=== PATIENT | female | born 1985 | race Caucasian/White ===

== ENCOUNTER 2019-08-27 12:13 | Emergency (ER) | payer OTHER ==
--- NOTE | 2019-08-27 13:13 | EDM.PDOC ---
ED HPI GENERAL MEDICAL PROBLEM - General Chief Complaint: Gastrointestinal Problem Stated Complaint: ABDOMINAL PAIN Time Seen by Provider: 08/27/19 13:13 Source of Information: Reports: Patient History Limitations: Reports: No Limitations - History of Present Illness INITIAL COMMENTS - FREE TEXT/NARRATIVE: HISTORY AND PHYSICAL: History of present illness: Patient is a 34-year-old female presents to the ED with complaint of blood in her stool. Patient states that she started having crampy lower abdominal pain and diarrhea this morning. She states she had multiple episodes of nonbloody diarrhea into the last 2 episodes she was having just blood in her stools. She denies any fevers, chills, nausea, vomiting rectal pain or itching, chest pain, shortness of breath, dizziness, syncope or pre-syncope. She reports surgical history of ovarian cyst removal 5 years ago. He is on Adderall for ADHD otherwise denies significant past medical history. Denies alcohol, tobacco, or illicit drug use. Review of systems: As per history of present illness and below otherwise all systems reviewed and negative. Past medical history: As per history of present illness and as reviewed below otherwise noncontributory. Surgical history: As per history of present illness and as reviewed below otherwise noncontributory. Social history: No reported history of drug or alcohol abuse. Family history: As per history of present illness and as reviewed below otherwise noncontributory. Physical exam: General: Patient sitting comfortably in no acute distress and nontoxic appearing HEENT: Atraumatic, normocephalic, pupils reactive, negative for conjunctival pallor or scleral icterus, mucous membranes moist, throat clear, neck supple, nontender, trachea midline. No meningeal signs. Lungs: Clear to auscultation, breath sounds equal bilaterally, chest nontender. Heart: S1S2, regular, negative for clicks, rubs, or overt murmur. Abdomen: No point tenderness on examination. Soft, nondistended. Negative for masses or hepatosplenomegaly. Negative for costovertebral tenderness. No rigidity, rebound, guarding. Pelvis: Stable nontender. Genitourinary: Deferred. Rectal: small external hemorrhoid noted. No stool in rectal vault and unable to perform stool guaiac. Extremities: Atraumatic, negative for cords or calf pain. Neurovascular unremarkable. Neuro: Awake, alert, oriented. Cranial nerves II through XII unremarkable. Cerebellum unremarkable. Motor and sensory unremarkable throughout. Exam nonfocal. Notes: Patient unable to give stool sample in ED. Patient did have a couple of drops of blood from her rectum while urinating with some mucous mixed in per nursing staff. Will treat for infectious colitis with cipro and advised follow up with general surgery for colonoscopy as well as PCP follow up. Patient advised to return to ED if new or worsening symptoms Diagnostics: CBC, CMP, PT/INR, stool culture, stool WBC, UA Therapeutics: [] Prescriptions: Cipro , Dike Impression: Blood per rectum, diarrhea, abdominal pain Plan: Take antibiotic as instructed You may take norco as needed for abdominal pain, do not take while driving as it may make you drowsy Follow up with primary care provider and general surgery, please call the number provided to schedule an appointment Return to ED as needed as discussed Definitive disposition and diagnosis as appropriate pending reevaluation and review of above. lower abdomen Pain Score (Numeric/FACES): 3 - Related Data Allergies Allergy/AdvReac Type Severity Reaction Status Date / Time No Known Allergies Allergy Verified 08/27/19 12:29 Home Meds: Home Meds Dextroamphetamine/Amphetamine [Adderall 20 mg Tablet] 20 mg PO DAILY 04/15/14 [ History] Ciprofloxacin HCl [Cipro] 500 mg PO BID 7 Days #14 tablet 08/27/19 [Rx] Hydrocodone/Acetaminophen [Dike 5-325 Tablet] 1 each PO Q6H PRN #12 tablet 06/05 [Rx] Past Medical History HEENT History: Reports: Sinusitis Cardiovascular History: Reports: None Respiratory History: Reports: Bronchitis, Recurrent Gastrointestinal History: Reports: Cholelithiasis Genitourinary History: Reports: None CARDIOPULMONARY TECHNICIAN History: Reports: None Musculoskeletal History: Reports: None Neurological History: Reports: None Psychiatric History: Reports: ADD, Depression Endocrine/Metabolic History: Reports: None Hematologic History: Reports: None Immunologic History: Reports: None Oncologic (Cancer) History: Reports: None Dermatologic History: Reports: None - Infectious Disease History Infectious Disease History: Reports: None - Past Surgical History Head Surgeries/Procedures: Reports: None HEENT Surgical History: Reports: None Cardiovascular Surgical History: Reports: None Respiratory Surgical History: Reports: None GI Surgical History: Reports: None Female Surgical History: Reports: None Endocrine Surgical History: Reports: None Neurological Surgical History: Reports: None Musculoskeletal Surgical History: Reports: None Oncologic Surgical History: Reports: None Dermatological Surgical History: Reports: None Social & Family History - Family History Family Medical History: Noncontributory - Tobacco Use Smoking Status *Q: Current Every Day Smoker Years of Tobacco use: 14 Packs/Tins Daily: 0.5 - Caffeine Use Caffeine Use: Reports: Coffee, Energy Drinks, Soda, Tea - Recreational Drug Use Recreational Drug Use: No ED ROS GENERAL - Review of Systems Review Of Systems: Comprehensive ROS is negative, except as noted in HPI. ED EXAM, GI/ABD - Physical Exam Exam: See Below (see dictation) Course - Vital Signs Last Recorded V/S: Last Vital Signs Temp 98.5 F 08/27/19 12:30 Pulse 125 H 08/27/19 12:30 Resp 18 08/27/19 12:30 BP 155/92 H 08/27/19 12:30 Pulse Ox 100 08/27/19 12:30 - Orders/Labs/Meds Orders: Active Orders 24 hr Category Date Time Status FECAL LACTOFERRIN [MREF] Stat Lab 08/27/19 13:05 Ordered OVA & PARASITES BY IMMUNOASSAY [MREF] Stat Lab 08/27/19 12:59 Ordered STOOL CULTURE/SHIGA TOXIN [MREF] Stat Lab 08/27/19 12:59 Ordered Labs: Laboratory Tests 08/27/19 08/27/19 08/27/19 Range/Units 12:59 13:20 13:20 WBC 11.27 H (4.0-11.0) K/uL RBC 4.14 L (4.30-5.90) M/uL Hgb 14.0 (12.0-16.0) g/dL Hct 39.8 (36.0-46.0) % MCV 96.1 (80.0-98.0) fL MCH 33.8 H (27.0-32.0) pg MCHC 35.2 (31.0-37.0) g/dL RDW Std Deviation 43.0 (28.0-62.0) fl RDW Coeff of Dany 12 (11.0-15.0) % Plt Count 335 (150-400) K/uL MPV 10.30 (7.40-12.00) fL Neut % (Auto) 77.8 (48.0-80.0) % Lymph % (Auto) 14.6 L (16.0-40.0) % Humphreys % (Auto) 7.0 (0.0-15.0) % Eos % (Auto) 0.2 (0.0-7.0) % Baso % (Auto) 0.4 (0.0-1.5) % Neut # (Auto) 8.8 H (1.4-5.7) K/uL Lymph # (Auto) 1.6 (0.6-2.4) K/uL Humphreys # (Auto) 0.8 (0.0-0.8) K/uL Eos # (Auto) 0.0 (0.0-0.7) K/uL Baso # (Auto) 0.0 (0.0-0.1) K/uL Nucleated RBC % 0.0 /100WBC Nucleated RBCs # 0 K/uL INR 0.92 Sodium (136-145) mmol/L Potassium (3.5-5.1) mmol/L Chloride (98-107) mmol/L Carbon Dioxide (21.0-32.0) mmol/L BUN (7.0-18.0) mg/dL Creatinine (0.6-1.0) mg/dL Est Cr Clr Drug Dosing mL/min Estimated GFR (MDRD) ml/min Glucose (74-106) mg/dL Calcium (8.5-10.1) mg/dL Total Bilirubin (0.2-1.0) mg/dL AST (15-37) IU/L ALT (14-63) IU/L Alkaline Phosphatase (46-116) U/L Total Protein (6.4-8.2) g/dL Albumin (3.4-5.0) g/dL Globulin (2.6-4.0) g/dL Albumin/Globulin Ratio (0.9-1.6) Urine Color YELLOW Urine Appearance CLEAR Urine pH 6.0 (5.0-8.0) Ur Specific [place] 1.025 (1.001-1.035) Urine Protein NEGATIVE (NEGATIVE) mg/dL Urine Glucose (UA) NEGATIVE (NEGATIVE) mg/dL Urine Ketones 40 H (NEGATIVE) mg/dL Urine Occult Blood NEGATIVE (NEGATIVE) Urine Nitrite NEGATIVE (NEGATIVE) Urine Bilirubin NEGATIVE (NEGATIVE) Urine Urobilinogen 0.2 (<2.0) EU/dL Ur Leukocyte Esterase NEGATIVE (NEGATIVE) 08/27/19 Range/Units 13:20 WBC (4.0-11.0) K/uL RBC (4.30-5.90) M/uL Hgb (12.0-16.0) g/dL Hct (36.0-46.0) % MCV (80.0-98.0) fL MCH (27.0-32.0) pg MCHC (31.0-37.0) g/dL RDW Std Deviation (28.0-62.0) fl RDW Coeff of Dany (11.0-15.0) % Plt Count (150-400) K/uL MPV (7.40-12.00) fL Neut % (Auto) (48.0-80.0) % Lymph % (Auto) (16.0-40.0) % Humphreys % (Auto) (0.0-15.0) % Eos % (Auto) (0.0-7.0) % Baso % (Auto) (0.0-1.5) % Neut # (Auto) (1.4-5.7) K/uL Lymph # (Auto) (0.6-2.4) K/uL Humphreys # (Auto) (0.0-0.8) K/uL Eos # (Auto) (0.0-0.7) K/uL Baso # (Auto) (0.0-0.1) K/uL Nucleated RBC % /100WBC Nucleated RBCs # K/uL INR Sodium 136 (136-145) mmol/L Potassium 3.7 (3.5-5.1) mmol/L Chloride 99 (98-107) mmol/L Carbon Dioxide 24.7 (21.0-32.0) mmol/L BUN 13 (7.0-18.0) mg/dL Creatinine 0.6 (0.6-1.0) mg/dL Est Cr Clr Drug Dosing 115.16 mL/min Estimated GFR (MDRD) > 60.0 ml/min Glucose 100 (74-106) mg/dL Calcium 8.6 (8.5-10.1) mg/dL Total Bilirubin 0.5 (0.2-1.0) mg/dL AST 59 H (15-37) IU/L ALT 81 H (14-63) IU/L Alkaline Phosphatase 52 (46-116) U/L Total Protein 8.1 (6.4-8.2) g/dL Albumin 4.3 (3.4-5.0) g/dL Globulin 3.8 (2.6-4.0) g/dL Albumin/Globulin Ratio 1.1 (0.9-1.6) Urine Color Urine Appearance Urine pH (5.0-8.0) Ur Specific [place] (1.001-1.035) Urine Protein (NEGATIVE) mg/dL Urine Glucose (UA) (NEGATIVE) mg/dL Urine Ketones (NEGATIVE) mg/dL Urine Occult Blood (NEGATIVE) Urine Nitrite (NEGATIVE) Urine Bilirubin (NEGATIVE) Urine Urobilinogen (<2.0) EU/dL Ur Leukocyte Esterase (NEGATIVE) Departure - Departure Time of Disposition: 15:05 Disposition: Home, Self-Care 01 Condition: Good Clinical Impression: Blood per rectum, Diarrhea, Abdominal pain - Discharge Information Referrals: Tracey Bond DO [Primary Care Provider] - Forms: ED Department Discharge Additional Instructions: The following information is given to patients seen in the emergency department who are being discharged to home. This information is to outline your options for follow-up care. We provide all patients seen in our emergency department with a follow-up referral. The need for follow-up, as well as the timing and circumstances, are variable depending upon the specifics of your emergency department visit. If you don't have a primary care physician on staff, we will provide you with a referral. We always advise you to contact your personal physician following an emergency department visit to inform them of the circumstance of the visit and for follow-up with them and/or the need for any referrals to a consulting specialist. The emergency department will also refer you to a specialist when appropriate. This referral assures that you have the opportunity for follow-up care with a specialist. All of these measure are taken in an effort to provide you with optimal care, which includes your follow-up. Under all circumstances we always encourage you to contact your private physician who remains a resource for coordinating your care. When calling for follow-up care, please make the office aware that this follow-up is from your recent emergency room visit. If for any reason you are refused follow-up, please contact the [facility] Emergency Department at and asked to speak to the emergency department charge nurse. [facility] [address] [place] [address] [facility] [address] [place] [id number] [facility] Specialty Care - General Surgery Professional Building [address] [facility], [address] [place] [address] Take antibiotic as instructed You may take norco as needed for abdominal pain, do not take while driving as it may make you drowsy Follow up with primary care provider and general surgery, please call the number provided to schedule an appointment Return to ED as needed as discussed Sepsis Event Note - Evaluation Sepsis Screening Result: No Definite Risk - Focused Exam Vital Signs: Vital Signs Temp Pulse Resp BP Pulse Ox 08/27/19 12:30 98.5 F 125 H 18 155/92 H 100 Date Exam was Performed: 08/27/19 Time Exam was Performed: 15:05 - My Orders Last 24 Hours: My Active Orders 08/27/19 12:59 OVA & PARASITES BY IMMUNOASSAY [MREF] Stat STOOL CULTURE/SHIGA TOXIN [MREF] Stat 08/27/19 13:05 FECAL LACTOFERRIN [MREF] Stat - Assessment/Plan Last 24 Hours: My Active Orders 08/27/19 12:59 OVA & PARASITES BY IMMUNOASSAY [MREF] Stat STOOL CULTURE/SHIGA TOXIN [MREF] Stat 08/27/19 13:05 FECAL LACTOFERRIN [MREF] Stat
[2019-08-27 14:00] LABS: BLOOD UREA NITROGEN,BUN 13 mg/dL (7.0-18.0); CARBON DIOXIDE,CO2 24.7 mmol/L (21.0-32.0); CHLORIDE,CL 99 mmol/L (98-107); GLUCOSE RANDOM 100 mg/dL (74-106); POTASSIUM,K 3.7 mmol/L (3.5-5.1); SODIUM,NA 136 mmol/L (136-145)
[2019-08-27] MEDS ORDERED: Acetaminophen/HYDROcodone 325-5 MG Tab PO ONE (15:23)
[2019-08-27 15:37] VITALS: BP 157/92; PULSE 91
== END 2019-08-27 15:40 | disposition home or self-care (01) ==
LOC: MW.ED 12:13
DX: K62.9 Disease of anus and rectum, unspecified (principal); R19.7 Diarrhea, unspecified; R10.9 Unspecified abdominal pain; F17.210 Nicotine dependence, cigarettes, uncomplicated
CPT/HCPCS: 36415; 80053; 81003; 85025; 85610; 99284; A9270

== ENCOUNTER 2020-04-14 09:23 | Day surgery (SDC) | payer OTHER ==
[~2020-04-14 09:23] MED LIST: Glycopyrrolate 0.2 MG/ML SDV ONE; Lactated Ringers 1,000 ML IV SCH; Lidocaine 2% 5 ML SDV ONE; Midazolam 1 MG/ML 2 ML SDV ONE; Propofol 200 MG/20 ML SDV ONE; Sodium Chloride 0.9% 10 ML SDV IV PRN; Sodium Chloride 0.9% 10 ML Syringe FLUSH PRN; Sodium Chloride 0.9% 2.5 ML Syringe FLUSH PRN
--- NOTE | 2020-04-14 10:03 | PCM.PREANE ---
Preanesthetic Assessment - Anesthesia/Transfusion/Family Hx Anesthesia History: Prior Anesthesia Without Reaction Other Type of Anesthesia Reaction Comment: DENIES ANY PROBLEMS WITH ANESTHESIA - never had a general anesthetic Family History of Anesthesia Reaction: No Transfusion History: No Prior Transfusion(s) - Review of Systems General: No Symptoms Pulmonary: No Symptoms Cardiovascular: No Symptoms Neurological: No Symptoms Other: Reports: None - Physical Assessment NPO Status Date: 04/13/20 Height: 5 ft 4 in Weight: 94.347 kg ASA Class: 2 Mental Status: Alert & Oriented x3 Airway Class: Mallampati = 3 ROM/Head Extension: Full Lungs: Clear to Auscultation, Normal Respiratory Effort Cardiovascular: Regular Rate, Regular Rhythm - Lab Values: Laboratory Last Values Urine HCG, Qual NEGATIVE (NEGATIVE) 04/14/20 09:36 - Allergies Allergies/Adverse Reactions: Allergies Allergy/AdvReac Type Severity Reaction Status Date / Time No Known Allergies Allergy Verified 04/08/20 08:12 - Blood Blood Available: Yes - Acknowledgements Anesthesia Type Planned: General Anesthesia (tiva) Pt an Appropriate Candidate for the Planned Anesthesia: Yes Alternatives and Risks of Anesthesia Discussed w Pt/Guardian: Yes Pt/Guardian Understands and Agrees with Anesthesia Plan: Yes Additional Comments: apl: htn, adhd, gerd PLAN: tiva PreAnesthesia Questionnaire HEENT History: Reports: Sinusitis Other HEENT History: wears contacts Cardiovascular History: Reports: None Respiratory History: Reports: Bronchitis, Recurrent Gastrointestinal History: Reports: Cholelithiasis Genitourinary History: Reports: None JEWEL INSPECTOR History: Reports: None Musculoskeletal History: Reports: None Neurological History: Reports: None Psychiatric History: Reports: ADD, Depression Endocrine/Metabolic History: Reports: None Hematologic History: Reports: None Immunologic History: Reports: None Oncologic (Cancer) History: Reports: None Dermatologic History: Reports: None - Infectious Disease History Infectious Disease History: Reports: None - Past Surgical History HEENT Surgical History: Reports: None Female Surgical History: Reports: None - SUBSTANCE USE Smoking Status *Q: Current Every Day Smoker Tobacco Use Within Last Twelve Months: Cigarettes Days Per Week of Alcohol Use: 7 Number of Drinks Per Day: 2 Total Drinks Per Week: 14 - HOME MEDS Home Medications: Home Meds Dextroamphetamine/Amphetamine [Adderall 20 mg Tablet] 15 mg PO DAILY 04/15/14 [History] Calcium Carbonate [Tums] 1 tab.chew CHEW ASDIRECTED PRN 04/08/20 [History] Enalapril Maleate 20 mg PO DAILY 04/08/20 [History] Melatonin 5 mg PO BEDTIME PRN 04/08/20 [History] Multivit-Min/Iron/Folic Acid/K [One Daily Women's Multivitamin] 1 tab PO DAILY 04/08/20 [History] - CURRENT (IN HOUSE) MEDS Current Meds: Current Medications Lactated Ringer's (Ringers, Lactated) 1,000 mls @ 125 mls/hr IV ASDIRECTED MELANIE Sodium Chloride (Saline Flush) 10 ml FLUSH ASDIRECTED PRN PRN Reason: Keep Vein Open Sodium Chloride (Saline Flush) 2.5 ml FLUSH ASDIRECTED PRN PRN Reason: Keep Vein Open Sodium Chloride (Saline Flush) 10 ml FLUSH ASDIRECTED PRN PRN Reason: Keep Vein Open Sodium Chloride (Saline Flush) 2.5 ml FLUSH ASDIRECTED PRN PRN Reason: Keep Vein Open Sodium Chloride (Normal Saline) 10 ml IV ASDIRECTED PRN PRN Reason: IV Use Discontinued Medications Glycopyrrolate (Robinul) Confirm Administered Dose 0.2 mg .ROUTE .STK-MED ONE Stop: 04/14/20 07:33 Lidocaine (Xylocaine-Mpf 2%) Confirm Administered Dose 5 ml .ROUTE .STK-MED ONE Stop: 04/14/20 09:03 Midazolam HCl (Versed 1 Mg/Ml) Confirm Administered Dose 2 mg .ROUTE .STK-MED ONE Stop: 04/14/20 07:29 Propofol (Diprivan 20 Ml) Confirm Administered Dose 600 mg .ROUTE .STK-MED ONE Stop: 04/14/20 07:29
--- NOTE | 2020-04-14 10:49 | PCM.OPNOTE ---
- General Post-Op/Procedure Note Date of Surgery/Procedure: 04/14/20 Operative Procedure(s): Diagnostic EGD and colonoscopy. Findings: Normal appearing EGD and colonoscopy. Biopsies obtained from gastric antrum, body and fundus as well as cecum, transverse colon, sigmoid colon and rectum. Pre Op Diagnosis: Abdominal pain and bowel habit changes. Post-Op Diagnosis: Same Anesthesia Technique: MAC Primary Surgeon: Allyn Ace Complications: None Condition: Stable
--- NOTE | 2020-04-14 11:47 | PCM48HPAN ---
Post Anesthesia Note - EVALUATION WITHIN 48HRS OF ANESTHETIC Vital Signs in Normal Range: Yes Patient Participated in Evaluation: Yes Respiratory Function Stable: Yes Airway Patent: Yes Cardiovascular Function Stable: Yes Hydration Status Stable: Yes Pain Control Satisfactory: Yes Nausea and Vomiting Control Satisfactory: Yes Mental Status Recovered: Yes Vital Signs: Last Vital Signs Temp 98.2 F 04/14/20 10:44 Pulse 90 04/14/20 10:56 Resp 14 04/14/20 10:56 BP 118/80 04/14/20 10:56 Pulse Ox 98 04/14/20 10:56
--- NOTE | 2020-04-14 11:47 | PCM.POSTAN ---
POST ANESTHESIA ASSESSMENT - MENTAL STATUS Mental Status: Alert, Oriented - VITAL SIGNS Vital Signs: Last Vital Signs Temp 98.2 F 04/14/20 10:44 Pulse 90 04/14/20 10:56 Resp 14 04/14/20 10:56 BP 118/80 04/14/20 10:56 Pulse Ox 98 04/14/20 10:56 - RESPIRATORY Respiratory Status: Respiratory Rate WNL, Airway Patent, O2 Saturation Stable - CARDIOVASCULAR CV Status: Pulse Rate WNL, Blood Pressure Stable - GASTROINTESTINAL GI Status: No Symptoms - POST OP HYDRATION Hydration Status: Adequate & Stable
[2020-04-14 12:21] VITALS: BP 128/82; PULSE 82
--- NOTE | 2020-04-15 17:49 | OR ---
SURGEON: ALLYN ACE MD DATE OF PROCEDURE: 04/14/2020 PREOPERATIVE DIAGNOSES: Abdominal pain, change in bowel habits. POSTOPERATIVE DIAGNOSES: Abdominal pain, change in bowel habits. PROCEDURE PERFORMED: Diagnostic esophagogastroduodenoscopy and colonoscopy. PRIMARY SURGEON: Allyn Ace MD ANESTHESIA: MAC. INSTRUMENT USED: Olympus endoscope and colonoscope. EXTENT OF EXAM: To the second portion of duodenum, to the cecum. PREPARATION: Good. LIMITATIONS: None. INDICATIONS FOR EXAMINATION: The patient is a 35-year-old female who presents with abdominal discomfort as well as a change in her bowel habits. She underwent a HIDA scan that showed a slightly decreased ejection fraction, but given the patient's severity of complaints, the decision was made to proceed first with a diagnostic EGD and colonoscopy. I explained the procedures, expected perioperative course, and risks. She verbalized understanding and wishes to proceed. PROCEDURE IN DETAIL: The patient was brought into the endoscopy suite and placed in the left lateral decubitus position. A time-out was completed verifying the patient's name, age, date of , allergies, and procedure to be performed. A bite block was placed in the patient's mouth. A face mask was placed over the patient. Monitored anesthesia care was induced. After adequate sedation was achieved, a well-lubricated endoscope was placed in the patient's mouth and advanced under direct visualization to the second portion of duodenum. This appeared normal and a photograph was taken. The scope was then fully withdrawn while examining the color, texture, anatomy, and integrity of the mucosa of the upper GI tract. The duodenum appeared normal. The scope was brought into the stomach and a photograph was taken of the pylorus and GE junction. Both appeared anatomically normal. Biopsies were taken of the gastric antrum, body, and fundus and sent for histologic review and H. pylori testing. The gastric mucosa appeared normal with no evidence of inflammation or ulceration. The scope was brought into the distal esophagus. A photograph was taken of the normal-appearing Z-line. The remainder of the esophagus appeared free of pathology. The scope was removed and this portion of procedure terminated. I then performed a digital rectal exam. This was normal. A well-lubricated colonoscope was inserted in the rectum and advanced under direct visualization to the level of the cecum. The cecum was identified by both visual and anatomic landmarks. A photograph was taken of cecal cap as well as with the scope retroflexed within the cecum. The scope was then fully withdrawn while examining the color, texture, anatomy, and integrity of the mucosa from the cecum to the anal canal. The colonic mucosa appeared normal. The terminal ileum appeared free of any inflammation. Random biopsies were taken of the cecum, transverse colon, sigmoid colon, and rectum and sent to pathology for histologic review. The scope was brought into the rectum and retroflexed to allow visualization of the anal canal opening. This appeared normal and a photograph was taken. The scope was then straightened out and fully withdrawn. Cecum to anus time was 6 minutes. The patient tolerated the procedure well and was transferred to the PACU in stable condition. ENDOSCOPIC DIAGNOSES: Abdominal pain and change in bowel habits. RECOMMENDATIONS: We will follow up with the patient in clinic to review her biopsy results and to discuss the possibility of biliary dyskinesia. MARION LORD /[id number]
== END 2020-04-14 11:35 | disposition home or self-care (01) ==
LOC: MW.SDS 09:23
PROVIDERS: ATTEND Surgery
DX: R19.4 Change in bowel habit (principal); R10.13 Epigastric pain; R10.11 Right upper quadrant pain; K82.8 Other specified diseases of gallbladder; F90.9 Attention-deficit hyperactivity disorder, unspecified type; F41.9 Anxiety disorder, unspecified; F17.210 Nicotine dependence, cigarettes, uncomplicated; Z79.899 Other long term (current) drug therapy
CPT/HCPCS: 00813; 81025; 88305; 88312; J2001; J2250; J2704; J3490; J7120

== ENCOUNTER 2020-06-26 06:58 | Emergency (ER) | payer OTHER ==
--- NOTE | 2020-06-26 07:06 | EDM.PDOC ---
ED HPI GENERAL MEDICAL PROBLEM - General Chief Complaint: Chest Pain Stated Complaint: CHEST PAIN Time Seen by Provider: 06/26/20 06:59 Source of Information: Reports: Patient History Limitations: Reports: No Limitations - History of Present Illness INITIAL COMMENTS - FREE TEXT/NARRATIVE: 35-year-old female past medical history recent COVID-19 infection of quarantine 4 days ago presents for chest pain or shortness of breath. Patient does note persistent cough, started to develop shortness of breath last night. She notes that shortness of breath and chest pain are worsening. Chest pain is mid substernal and worse with deep inspiration. Shortness of breath is worse with exertion. No fevers. No lower extremity pain, swelling, redness. chest Pain Score (Numeric/FACES): 4 - Related Data Allergies Allergy/AdvReac Type Severity Reaction Status Date / Time No Known Allergies Allergy Verified 06/26/20 07:02 Home Meds: Home Meds Dextroamphetamine/Amphetamine [Adderall 20 mg Tablet] 15 mg PO DAILY 04/15/14 [History] Calcium Carbonate [Tums] 1 tab.chew CHEW ASDIRECTED PRN 04/08/20 [History] Enalapril Maleate 20 mg PO DAILY 04/08/20 [History] Melatonin 5 mg PO BEDTIME PRN 04/08/20 [History] Multivit-Min/Iron/Folic Acid/K [One Daily Women's Multivitamin] 1 tab PO DAILY 04/08/20 [History] Past Medical History HEENT History: Reports: Other (See Below) Other HEENT History: wears contacts Cardiovascular History: Reports: Hypertension Respiratory History: Reports: None Gastrointestinal History: Reports: Cholelithiasis, GERD Genitourinary History: Reports: None [employer] History: Reports: None Musculoskeletal History: Reports: None Neurological History: Reports: None Psychiatric History: Reports: ADD, Anxiety, Depression Endocrine/Metabolic History: Reports: Obesity/BMI 30+ Hematologic History: Reports: None Immunologic History: Reports: None Oncologic (Cancer) History: Reports: None Dermatologic History: Reports: None - Infectious Disease History Infectious Disease History: Reports: None - Past Surgical History HEENT Surgical History: Reports: Oral Surgery Female Surgical History: Reports: Other (See Below) Social & Family History - Family History Family Medical History: No Pertinent Family History - Caffeine Use Caffeine Use: Reports: Coffee, Energy Drinks, Soda, Tea ED ROS GENERAL - Review of Systems Review Of Systems: Comprehensive ROS is negative, except as noted in HPI. ED EXAM, GENERAL - Physical Exam Exam: See Below Exam Limited By: No Limitations General Appearance: Alert, WD/WN, No Apparent Distress Ears: Normal External Exam Nose: Normal Inspection Throat/Mouth: Normal Voice, No Airway Compromise Head: Atraumatic, Normocephalic Neck: Normal Inspection Respiratory/Chest: No Respiratory Distress, Lungs Clear, Normal Breath Sounds, No Accessory Muscle Use Cardiovascular: Normal Peripheral Pulses, No Edema, Tachycardia Extremities: Normal Inspection, Other (Lower extremities are grossly symmetric without edema, swelling, redness, tenderness to palpation) Neurological: Alert Psychiatric: Normal Affect, Normal Mood Skin Exam: Warm, Dry, Intact, Normal Color #1 Interpretation EKG Date: 06/26/20 Time: 07:07 Rhythm: Other (sinus tachycardia) Rate (Beats/Min): 106 [place]: Normal P-Wave: Present QRS: Normal ST-T: Normal QT: Normal NH/PQ Interval: 142 EKG Interpretation Comments: sinus tachycardia, no ischemic changes, no evidence of R heart strain Course - Vital Signs Last Recorded V/S: Last Vital Signs Temp 96.8 F L 06/26/20 07:00 Pulse 89 06/26/20 08:44 Resp 18 06/26/20 08:44 BP 141/91 H 06/26/20 08:44 Pulse Ox 99 06/26/20 08:44 - Orders/Labs/Meds Orders: Active Orders 24 hr Category Date Time Status Cardiac Monitoring [RC] . DIRECTED Care 06/26/20 07:13 Active EKG Documentation Completion [RC] STAT Care 06/26/20 07:13 Active Pulse Oximetry [RC] ASDIRECTED Care 06/26/20 07:13 Active PROCALCITONIN [REF] Stat Lab 06/26/20 07:18 Received Sodium Chloride 0.9% [Saline Flush] Med 06/26/20 07:13 Active 10 ml FLUSH ASDIRECTED PRN Sodium Chloride 0.9% [Saline Flush] Med 06/26/20 07:13 Active 2.5 ml FLUSH ASDIRECTED PRN Saline Lock Insert [OM.PC] Stat Oth 06/26/20 07:13 Ordered Medication Orders Sodium Chloride (Saline Flush) 10 ml FLUSH ASDIRECTED PRN PRN Reason: Keep Vein Open Last Admin: 06/26/20 07:39 Dose: 10 ml Documented by: MEET Sodium Chloride (Saline Flush) 2.5 ml FLUSH ASDIRECTED PRN PRN Reason: Keep Vein Open Last Admin: 06/26/20 07:42 Dose: 2.5 ml Documented by: MEET Labs: Laboratory Tests 06/26/20 06/26/20 06/26/20 Range/Units 07:18 07:18 07:18 WBC 7.83 (4.0-11.0) K/uL RBC 4.10 L (4.30-5.90) M/uL Hgb 13.3 (12.0-16.0) g/dL Hct 40.3 (36.0-46.0) % MCV 98.3 H (80.0-98.0) fL MCH 32.4 H (27.0-32.0) pg MCHC 33.0 (31.0-37.0) g/dL RDW Std Deviation 45.2 (28.0-62.0) fl RDW Coeff of Dany 12 (11.0-15.0) % Plt Count 371 (150-400) K/uL MPV 10.70 (7.40-12.00) fL Neut % (Auto) 62.0 (48.0-80.0) % Lymph % (Auto) 28.5 (16.0-40.0) % [place] % (Auto) 8.0 (0.0-15.0) % Eos % (Auto) 0.9 (0.0-7.0) % Baso % (Auto) 0.6 (0.0-1.5) % Neut # (Auto) 4.9 (1.4-5.7) K/uL Lymph # (Auto) 2.2 (0.6-2.4) K/uL [place] # (Auto) 0.6 (0.0-0.8) K/uL Eos # (Auto) 0.1 (0.0-0.7) K/uL Baso # (Auto) 0.1 (0.0-0.1) K/uL Nucleated RBC % 0.0 /100WBC Nucleated RBCs # 0 K/uL INR 0.95 APTT 25.7 (18.6-31.3) SEC D-Dimer, Quantitative 0.58 H (0.0-0.50) mg/L FEU Lactate 1.9 (0.20-2.00) mmol/L Sodium (136-145) mmol/L Potassium (3.5-5.1) mmol/L Chloride (98-107) mmol/L Carbon Dioxide (21.0-32.0) mmol/L BUN (7.0-18.0) mg/dL Creatinine (0.6-1.0) mg/dL Est Cr Clr Drug Dosing mL/min Estimated GFR (MDRD) ml/min Glucose (74-106) mg/dL Calcium (8.5-10.1) mg/dL Magnesium (1.8-2.4) mg/dL Total Bilirubin (0.2-1.0) mg/dL AST (15-37) IU/L ALT (14-63) IU/L Alkaline Phosphatase (46-116) U/L Troponin I (0.000-0.056) ng/mL C-Reactive Protein (0.00-0.90) mg/dL B-Natriuretic Peptide (<100) PG/ML Total Protein (6.4-8.2) g/dL Albumin (3.4-5.0) g/dL Globulin (2.6-4.0) g/dL Albumin/Globulin Ratio (0.9-1.6) HCG, Qual (NEG) 06/26/20 06/26/20 06/26/20 Range/Units 07:18 07:18 07:18 WBC (4.0-11.0) K/uL RBC (4.30-5.90) M/uL Hgb (12.0-16.0) g/dL Hct (36.0-46.0) % MCV (80.0-98.0) fL MCH (27.0-32.0) pg MCHC (31.0-37.0) g/dL RDW Std Deviation (28.0-62.0) fl RDW Coeff of Dany (11.0-15.0) % Plt Count (150-400) K/uL MPV (7.40-12.00) fL Neut % (Auto) (48.0-80.0) % Lymph % (Auto) (16.0-40.0) % [place] % (Auto) (0.0-15.0) % Eos % (Auto) (0.0-7.0) % Baso % (Auto) (0.0-1.5) % Neut # (Auto) (1.4-5.7) K/uL Lymph # (Auto) (0.6-2.4) K/uL [place] # (Auto) (0.0-0.8) K/uL Eos # (Auto) (0.0-0.7) K/uL Baso # (Auto) (0.0-0.1) K/uL Nucleated RBC % /100WBC Nucleated RBCs # K/uL INR APTT (18.6-31.3) SEC D-Dimer, Quantitative (0.0-0.50) mg/L FEU Lactate (0.20-2.00) mmol/L Sodium 139 (136-145) mmol/L Potassium 3.6 (3.5-5.1) mmol/L Chloride 103 (98-107) mmol/L Carbon Dioxide 23.2 (21.0-32.0) mmol/L BUN 16 (7.0-18.0) mg/dL Creatinine 0.8 (0.6-1.0) mg/dL Est Cr Clr Drug Dosing 85.56 mL/min Estimated GFR (MDRD) > 60.0 ml/min Glucose 105 (74-106) mg/dL Calcium 9.1 (8.5-10.1) mg/dL Magnesium 1.7 L (1.8-2.4) mg/dL Total Bilirubin 0.4 (0.2-1.0) mg/dL AST 73 H (15-37) IU/L ALT 74 H (14-63) IU/L Alkaline Phosphatase 44 L (46-116) U/L Troponin I < 0.050 (0.000-0.056) ng/mL C-Reactive Protein 2.30 H (0.00-0.90) mg/dL B-Natriuretic Peptide 9 (<100) PG/ML Total Protein 7.8 (6.4-8.2) g/dL Albumin 4.0 (3.4-5.0) g/dL Globulin 3.8 (2.6-4.0) g/dL Albumin/Globulin Ratio 1.1 (0.9-1.6) HCG, Qual NEGATIVE (NEG) Meds: Medications Generic Name Dose Route Start Last Admin Trade Name Kitty PRN Reason Stop Dose Admin Sodium Chloride 10 ml 06/26/20 07:13 06/26/20 07:39 Saline Flush FLUSH 10 ml ASDIRECTED PRN Administration Keep Vein Open Sodium Chloride 2.5 ml 06/26/20 07:13 06/26/20 07:42 Saline Flush FLUSH 2.5 ml ASDIRECTED PRN Administration Keep Vein Open Discontinued Medications Generic Name Dose Route Start Last Admin Trade Name Kitty PRN Reason Stop Dose Admin Acetaminophen 1,000 mg 06/26/20 07:13 06/26/20 07:33 Tylenol Extra Strength PO 06/26/20 07:14 1,000 mg ONETIME ONE Administration Aspirin 324 mg 06/26/20 07:13 06/26/20 07:32 Aspirin PO 06/26/20 07:14 324 mg ONETIME ONE Administration Sodium Chloride 1,000 mls @ 999 mls/hr 06/26/20 07:13 06/26/20 07:34 Normal Saline IV 06/26/20 08:13 999 mls/hr .Bolus ONE Administration Iopamidol 50 ml 06/26/20 09:10 06/26/20 09:11 Isovue Multipack-370 (76%) IVPUSH 06/26/20 09:11 50 ml ONETIME STA Administration - Re-Assessments/Exams Free Text/Narrative Re-Assessment/Exam: 06/26/20 07:17 We will get labs including D-dimer to rule out PE considering patient's recent COVID-19 infection and tachycardia. We will follow up results and disposition accordingly. Will give IV fluid bolus, aspirin, Tylenol. 06/26/20 09:52 CT imaging of the chest is unremarkable. No evidence of pulmonary embolism, no evidence of Covid pneumonia. 06/26/20 09:55 Patient symptomatically is feeling much better. Will d/c with PMD f/u and return precautions discussed at length. Departure - Departure Time of Disposition: 09:55 Disposition: Home, Self-Care 01 Condition: Good Clinical Impression: Atypical chest pain Chest pain Qualifiers: Chest pain type: unspecified Qualified Code(s): R07.9 - Chest pain, unspecified - Discharge Information Instructions: Nonspecific Chest Pain, Adult, [id number] Referrals: PCP,None [Primary Care Provider] - Forms: ED Department Discharge Additional Instructions: Your work-up was unremarkable. All of your labs look good aside from an elevated CRP and elevated D-dimer. These can be indicative of Covid infection, or blood clots in the lungs. For this reason we did a CT scan of your chest which did not reveal any blood clots or evidence of Covid pneumonia. It is likely that your symptoms are lingering effects from Covid. I recommend that you follow-up with your primary care physician for further work-up as needed. If you develop worsening chest pain or shortness of breath you are encouraged to return to the emergency department as today's visit is a snapshot in time and medical conditions can change, we would not want to miss any serious pathology if things worsen. The following information is given to patients seen in the emergency department who are being discharged to home. This information is to outline your options for follow-up care. We provide all patients seen in our emergency department with a follow-up referral. The need for follow-up, as well as the timing and circumstances, are variable depending upon the specifics of your emergency department visit. If you don't have a primary care physician on staff, we will provide you with a referral. We always advise you to contact your personal physician following an emergency department visit to inform them of the circumstance of the visit and for follow-up with them and/or the need for any referrals to a consulting specialist. The emergency department will also refer you to a specialist when appropriate. This referral assures that you have the opportunity for follow-up care with a specialist. All of these measure are taken in an effort to provide you with optimal care, which includes your follow-up. Under all circumstances we always encourage you to contact your private physician who remains a resource for coordinating your care. When calling for follow-up care, please make the office aware that this follow-up is from your recent emergency room visit. If for any reason you are refused follow-up, please contact the [facility] at and asked to speak to the emergency department charge nurse. Please follow up with your primary care physician. If you do not have a primary care physician, see below: [facility] [address] [place] [address] [facility] [address] [place] [address] Sepsis Event Note (ED) - Evaluation Sepsis Screening Result: No Definite Risk - Focused Exam Vital Signs: Vital Signs Temp Pulse Resp BP Pulse Ox 06/26/20 08:44 89 18 141/91 H 99 06/26/20 07:43 154/100 H 06/26/20 07:00 96.8 F L 111 H 20 177/112 H 98 - My Orders Last 24 Hours: My Active Orders 06/26/20 07:13 Cardiac Monitoring [RC] . DIRECTED EKG Documentation Completion [RC] STAT Pulse Oximetry [RC] ASDIRECTED Sodium Chloride 0.9% [Saline Flush] 10 ml FLUSH ASDIRECTED PRN Sodium Chloride 0.9% [Saline Flush] 2.5 ml FLUSH ASDIRECTED PRN Saline Lock Insert [OM.PC] Stat 06/26/20 07:18 PROCALCITONIN [REF] Stat - Assessment/Plan Last 24 Hours: My Active Orders 06/26/20 07:13 Cardiac Monitoring [RC] . DIRECTED EKG Documentation Completion [RC] STAT Pulse Oximetry [RC] ASDIRECTED Sodium Chloride 0.9% [Saline Flush] 10 ml FLUSH ASDIRECTED PRN Sodium Chloride 0.9% [Saline Flush] 2.5 ml FLUSH ASDIRECTED PRN Saline Lock Insert [OM.PC] Stat 06/26/20 07:18 PROCALCITONIN [REF] Stat
[2020-06-26] MEDS ORDERED: Aspirin 81 MG Tab.Chew PO ONE (07:13)
[2020-06-26] MEDS ORDERED: Sodium Chloride 0.9% 10 ML Syringe FLUSH PRN (07:13)
[2020-06-26] MEDS ORDERED: Sodium Chloride 0.9% 1,000 ML IV ONE (07:13)
[2020-06-26] MEDS ORDERED: Acetaminophen 500 MG Tab PO ONE (07:13)
[2020-06-26] MEDS ORDERED: Sodium Chloride 0.9% 2.5 ML Syringe FLUSH PRN (07:13)
--- NOTE | 2020-06-26 08:05 | CR ---
INDICATION: COVID. Dyspnea. Chest pain COMPARISON: None TECHNIQUE: Single-view portable chest radiograph FINDINGS: TUBES AND LINES: None. HEART AND MEDIASTINUM: The heart size is normal. The mediastinal contour appears normal for patient age. LUNGS AND PLEURAL SPACES: The lungs appear normal.The pleural spaces are unremarkable. OSSEOUS STRUCTURES: Age-appropriate appearance. No acute focal finding. IMPRESSION: Normal single-view portable chest radiograph Dictated by Geraldo Ortiz MD @ Jun 26 2020 8:03AM Signed by Dr. Geraldo Ortiz @ Jun 26 2020 8:04AM
[2020-06-26 08:13] LABS: BLOOD UREA NITROGEN,BUN 16 mg/dL (7.0-18.0); CARBON DIOXIDE,CO2 23.2 mmol/L (21.0-32.0); CHLORIDE,CL 103 mmol/L (98-107); GLUCOSE RANDOM 105 mg/dL (74-106); POTASSIUM,K 3.6 mmol/L (3.5-5.1); SODIUM,NA 139 mmol/L (136-145)
[2020-06-26] MEDS ORDERED: Iopamidol 755 MG/ML 500 ML Multipack Bottle IVPUSH STA (09:10)
--- NOTE | 2020-06-26 09:36 | CT ---
INDICATION: Dyspnea and chest pain COMPARISON: None TECHNIQUE: : CT examination of the chest was performed with the uneventful intravenous administration of 15 cc of Isovue 370 while thin axial sections were obtained from above the apices of the lungs to the lung bases. Please note that all CT scans at this facility use dose modulation, iterative reconstruction, and/or weight-based dosing when appropriate to reduce radiation dose to as low as reasonably achievable. FINDINGS: : HEART and MEDIASTINUM: The heart size is normal. There is no mediastinal or hilar adenopathy or mass. There is no pericardial effusion. PULMONARY ARTERIAL CIRCULATION: There is no visible intraluminal filling defect to suggest pulmonary embolus. LUNGS: The lungs show no focal consolidation or mass. The airways appear normal. PLEURAL SPACES: There is no pleural effusion, pneumothorax or pleural based mass. VISUALIZED UPPER ABDOMEN: The limited visualized upper abdominal structures appear normal. OSSEOUS STRUCTURES: Age-appropriate appearance. No acute fracture or destructive process. TUBES and LINES: None. IMPRESSION: No findings of pulmonary embolus. Please note that all CT scans at this facility use dose modulation, iterative reconstruction, and/or weight-based dosing when appropriate to reduce radiation dose to as low as reasonably achievable. Dictated by Geraldo Ortiz MD @ Jun 26 2020 9:31AM Signed by Dr. Geraldo Ortiz @ Jun 26 2020 9:35AM
[2020-06-26 10:30] VITALS: BP 132/80; PULSE 87
== END 2020-06-26 10:20 | disposition home or self-care (01) ==
LOC: MW.ED 06:58
DX: R07.89 Other chest pain (principal); I10 Essential (primary) hypertension; F98.8 Other specified behavioral and emotional disorders with onset usually occurring in childhood and adolescence; E66.9 Obesity, unspecified; Z68.34 Body mass index [BMI] 34.0-34.9, adult; Z79.899 Other long term (current) drug therapy
CPT/HCPCS: 36415; 71045; 71275; 80053; 83605; 83735; 83880; 84145; 84484; 84703; 85025; 85379; 85610; 85730; 86140; 93005; 99285; A9270; J7030; Q9967

== ENCOUNTER 2021-03-18 17:37 | Emergency (ER) | payer OTHER ==
[2021-03-18] MEDS ORDERED: LORazepam 1 MG Tab PO ONE (17:46)
--- NOTE | 2021-03-18 18:29 | CR ---
CHEST 1 VIEW AP INDICATION: Chest pain IMPRESSION: Normal heart size and vascular pattern. Lungs are clear of focal opacities. No pneumothorax or pleural abnormality. Dictated by Javed Guillaume MD @ 03/18/2021 6:28:14 PM (Electronically Signed)
[2021-03-18 18:53] LABS: BLOOD UREA NITROGEN,BUN 12 mg/dL (7.0-18.0); CARBON DIOXIDE,CO2 24.5 mmol/L (21.0-32.0); CHLORIDE,CL 99 mmol/L (98-107); GLUCOSE RANDOM 87 mg/dL (74-106); POTASSIUM,K 3.5 mmol/L (3.5-5.1); SODIUM,NA 137 mmol/L (136-145)
--- NOTE | 2021-03-18 18:58 | EDM.PDOC ---
ED HPI GENERAL MEDICAL PROBLEM - General Chief Complaint: Chest Pain Stated Complaint: HIGH BLOOD PRESSURE AND LFT ARM HURTS Time Seen by Provider: 03/18/21 17:59 Source of Information: Reports: Patient History Limitations: Reports: No Limitations - History of Present Illness INITIAL COMMENTS - FREE TEXT/NARRATIVE: HISTORY AND PHYSICAL: History of present illness: Patient is a 36-year-old female who presents to the emergency room with complaints of left arm pain, chest pain and anxiety. She states when she got home from work her left arm had a sharp stabbing pain in the bicep region and thought maybe her blood pressure was elevated. She took her blood pressure at home and it was 180s over 90s. She became very anxious and started to develop chest pain. She states she does have a history of anxiety and feels this could have played a role in her symptoms but does not recall anything to "set me off". Patient denies any fever, chills, headache, change in vision, syncope or near syncope. Denies any chest pain, back pain, shortness of breath or cough. Denies any GI or symptoms. Denies any alcohol or drug abuse Review of systems: As per history of present illness and below otherwise all systems reviewed and negative. Past medical history: As per history of present illness and as reviewed below otherwise noncontributory. Surgical history: As per history of present illness and as reviewed below otherwise noncontributory. Social history: See social history for further information Family history: As per history of present illness and as reviewed below otherwise noncontributory. Physical exam: General: Well developed and well nourished 36 year old female. Alert and orientated x 3. Nontoxic in appearance, fidgeting, unable to sit still, avoids eye contact but appears in no acute distress. Vital signs are stable and have been reviewed by me. Nursing notes were reviewed. HEENT: Atraumatic, normocephalic, pupils equal and reactive bilaterally, nega tive for conjunctival pallor or scleral icterus, mucous membranes moist, TMs normal bilaterally, throat clear, neck supple, nontender, trachea midline. No drooling or trismus noted. No meningeal signs. No hot potato voice noted. Lungs: Clear to auscultation bilaterally. No wheezes, rales, or rhonchi. Chest nontender. Normal work of breathing, no accessory muscles used. Heart: S1S2, regular rate and rhythm without overt murmur, gallops, or rubs. No JVD. No peripheral edema Abdomen: Soft, nondistended, nontender. Skin: Intact, warm, dry. No lesions or rashes noted. Hematologic: No petechiae or purpra. Mucosa appropriate color and normal nail bed color and refill. Extremities: Atraumatic, moves all extremities per self without difficulty or deficits, negative for cords or calf pain. Neurovascular unremarkable. Neuro: Awake, alert, oriented. Cranial nerves II through XII unremarkable. Cerebellum unremarkable. Motor and sensory unremarkable throughout. Exam nonfocal. Psychiatric: Mood and affect are appropriate. Normal thought process. Answering questions appropriately. Please note that the patient was seen and evaluated during the 2019 SARS-CoV-2 novel coronavirus pandemic period. Community viral transmission is ongoing at time of this encounter and the emergency department is operating under pandemic response procedures. Medical Decision Making: Patient is a 36-year-old female who presents to the emergency room with complaints of chest pain, left arm pain and anxiety. Upon arrival the patient is fidgeting and unable to sit still frequently grabbing at both arms. She does appear to be having a panic attack. States she does not take medication for this. We will do a cardiac work-up. We will give her a tablet of Ativan to help calm her down. EKG is unremarkable. I have no concern for PE as she is not on any form of hormone therapy and has no other risk factors. Diagnostics are unremarkable. Chest x-ray shows no acute findings. She does feel improved after the Ativan. Vital signs stable. I have talked with the patient about today's findings, in addition to providing specific details for plan of care. Reassessment at the time of disposition demonstrates that the patient is in no acute distress. The patient is stable for discharge, counseling was provided and we discussed in great detail signs and symptoms that would prompt them to return to the Emergency Department. Medication, follow up and supportive care measures were reviewed and discussed. Voices understanding and is agreeable to plan of care. Denies any further questions or concerns at this time. Diagnostics: CBC, CMP, Troponin, EKG, CXR, TSH, UA, Drug Screen Therapeutics: PO ativan Prescription: None Impression: Chest pain, nonspecific Anxiety Plan: 1. You were evaluated today on an emergent basis. Your lab work, EKG, chest x- ray and cardiac enzymes are normal. Please continue to monitor your symptoms closely. I feel that anxiety could play a role in the event that occurred today. 2. You can alternate Tylenol and ibuprofen as needed for pain and fever management. 3. We encourage you to follow up with your primary care provider and/or recommended specialist in the next few days for re-evaluation and further care/management. 4. If your symptoms should worsen, new symptoms develop or any of the signs and symptoms we discussed should arise please return to the emergency room or call 911 (if needed). Definitive disposition and diagnosis as appropriate pending reevaluation and review of above. chest Pain Score (Numeric/FACES): 6 - Related Data Allergies Allergy/AdvReac Type Severity Reaction Status Date / Time No Known Allergies Allergy Verified 03/18/21 17:48 Home Meds: Home Meds Dextroamphetamine/Amphetamine [Adderall 20 mg Tablet] 15 mg PO DAILY 04/15/14 [History] Calcium Carbonate [Tums] 1 tab.chew CHEW ASDIRECTED PRN 04/08/20 [History] Enalapril Maleate 20 mg PO DAILY 04/08/20 [History] Melatonin 5 mg PO BEDTIME PRN 04/08/20 [History] Multivit-Min/Iron/Folic Acid/K [One Daily Women's Multivitamin] 1 tab PO DAILY 04/08/20 [History] Past Medical History HEENT History: Reports: Other (See Below) Other HEENT History: wears contacts Cardiovascular History: Reports: Hypertension Respiratory History: Reports: None Gastrointestinal History: Reports: Cholelithiasis, GERD Genitourinary History: Reports: None 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 (See Below) Other DIETARY SERVICES DIRECTOR History: teratoma cyst Musculoskeletal History: Reports: None Neurological History: Reports: None Psychiatric History: Reports: ADD, Anxiety, Depression Endocrine/Metabolic History: Reports: Obesity/BMI 30+ Insulin Pump Model and Orthopedic Shoe Maker: None Hematologic History: Reports: None Immunologic History: Reports: None Oncologic (Cancer) History: Reports: None Dermatologic History: Reports: None - Infectious Disease History Infectious Disease History: Reports: None - Past Surgical History Head Surgeries/Procedures: Reports: None HEENT Surgical History: Reports: Oral Surgery Other HEENT Surgeries/Procedures: wisdom teeth extraction Cardiovascular Surgical History: Reports: None Respiratory Surgical History: Reports: None GI Surgical History: Reports: None Female Surgical History: Reports: Other (See Below) Other Female Surgeries/Procedures: exploratory laparoscopy Endocrine Surgical History: Reports: None Neurological Surgical History: Reports: None Musculoskeletal Surgical History: Reports: None Oncologic Surgical History: Reports: None Dermatological Surgical History: Reports: None Social & Family History - Family History Family Medical History: No Pertinent Family History - Tobacco Use Tobacco Use Status *Q: Former Tobacco User Used Tobacco, but Quit: Yes Month/Year Tobacco Last Used: 3 months - Caffeine Use Caffeine Use: Reports: None - Recreational Drug Use Recreational Drug Use: No ED ROS GENERAL - Review of Systems Review Of Systems: Comprehensive ROS is negative, except as noted in HPI. ED EXAM, GENERAL - Physical Exam Exam: See Below (See dictation) Course - Vital Signs Last Recorded V/S: Last Vital Signs Temp 97.2 F 03/18/21 17:46 Pulse 98 03/18/21 17:46 Resp 17 03/18/21 17:46 BP 180/90 H 03/18/21 17:46 Pulse Ox 96 03/18/21 17:46 - Orders/Labs/Meds Labs: Laboratory Tests 03/18/21 03/18/21 03/18/21 Range/Units 18:06 18:06 18:13 WBC 10.73 (4.0-11.0) K/uL RBC 4.07 L (4.30-5.90) M/uL Hgb 13.9 (12.0-16.0) g/dL Hct 40.0 (36.0-46.0) % MCV 98.3 H (80.0-98.0) fL MCH 34.2 H (27.0-32.0) pg MCHC 34.8 (31.0-37.0) g/dL RDW Std Deviation 44.7 (28.0-62.0) fl RDW Coeff of Dany 12 (11.0-15.0) % Plt Count 315 (150-400) K/uL MPV 10.50 (7.40-12.00) fL Neut % (Auto) 57.6 (48.0-80.0) % Lymph % (Auto) 33.0 (16.0-40.0) % Dickens % (Auto) 7.7 (0.0-15.0) % Eos % (Auto) 1.0 (0.0-7.0) % Baso % (Auto) 0.7 (0.0-1.5) % Neut # (Auto) 6.2 H (1.4-5.7) K/uL Lymph # (Auto) 3.5 H (0.6-2.4) K/uL Dickens # (Auto) 0.8 (0.0-0.8) K/uL Eos # (Auto) 0.1 (0.0-0.7) K/uL Baso # (Auto) 0.1 (0.0-0.1) K/uL Nucleated RBC % 0.0 /100WBC Nucleated RBCs # 0 K/uL Sodium 137 (136-145) mmol/L Potassium 3.5 (3.5-5.1) mmol/L Chloride 99 (98-107) mmol/L Carbon Dioxide 24.5 (21.0-32.0) mmol/L BUN 12 (7.0-18.0) mg/dL Creatinine 0.8 (0.6-1.0) mg/dL Est Cr Clr Drug Dosing 84.76 mL/min Estimated GFR (MDRD) > 60.0 ml/min Glucose 87 (74-106) mg/dL Calcium 9.1 (8.5-10.1) mg/dL Total Bilirubin 0.4 (0.2-1.0) mg/dL AST 96 H (15-37) IU/L ALT 78 H (14-63) IU/L Alkaline Phosphatase 58 (46-116) U/L Troponin I < 0.050 (0.000-0.056) ng/mL Total Protein 7.8 (6.4-8.2) g/dL Albumin 4.0 (3.4-5.0) g/dL Globulin 3.8 (2.6-4.0) g/dL Albumin/Globulin Ratio 1.1 (0.9-1.6) TSH, Ultra Sensitive 2.13 (0.36-3.74) uIU/mL Urine Color YELLOW Urine Appearance CLEAR Urine pH 6.0 (5.0-8.0) Ur Specific [place] 1.020 (1.001-1.035) Urine Protein NEGATIVE (NEGATIVE) mg/dL Urine Glucose (UA) NEGATIVE (NEGATIVE) mg/dL Urine Ketones NEGATIVE (NEGATIVE) mg/dL Urine Occult Blood NEGATIVE (NEGATIVE) Urine Nitrite NEGATIVE (NEGATIVE) Urine Bilirubin NEGATIVE (NEGATIVE) Urine Urobilinogen 0.2 (<2.0) EU/dL Ur Leukocyte Esterase NEGATIVE (NEGATIVE) Urine Opiates Screen (NEGATIVE) Ur Oxycodone Screen (NEGATIVE) Urine Methadone Screen (NEGATIVE) Ur Barbiturates Screen (NEGATIVE) Ur Phencyclidine Scrn (NEGATIVE) Ur Amphetamine Screen (NEGATIVE) U Methamphetamines Scrn (NEGATIVE) U Benzodiazepines Scrn (NEGATIVE) U Cocaine Metab Screen (NEGATIVE) U Marijuana (THC) Screen (NEGATIVE) 03/18/21 Range/Units 18:13 WBC (4.0-11.0) K/uL RBC (4.30-5.90) M/uL Hgb (12.0-16.0) g/dL Hct (36.0-46.0) % MCV (80.0-98.0) fL MCH (27.0-32.0) pg MCHC (31.0-37.0) g/dL RDW Std Deviation (28.0-62.0) fl RDW Coeff of Dany (11.0-15.0) % Plt Count (150-400) K/uL MPV (7.40-12.00) fL Neut % (Auto) (48.0-80.0) % Lymph % (Auto) (16.0-40.0) % Dickens % (Auto) (0.0-15.0) % Eos % (Auto) (0.0-7.0) % Baso % (Auto) (0.0-1.5) % Neut # (Auto) (1.4-5.7) K/uL Lymph # (Auto) (0.6-2.4) K/uL Dickens # (Auto) (0.0-0.8) K/uL Eos # (Auto) (0.0-0.7) K/uL Baso # (Auto) (0.0-0.1) K/uL Nucleated RBC % /100WBC Nucleated RBCs # K/uL Sodium (136-145) mmol/L Potassium (3.5-5.1) mmol/L Chloride (98-107) mmol/L Carbon Dioxide (21.0-32.0) mmol/L BUN (7.0-18.0) mg/dL Creatinine (0.6-1.0) mg/dL Est Cr Clr Drug Dosing mL/min Estimated GFR (MDRD) ml/min Glucose (74-106) mg/dL Calcium (8.5-10.1) mg/dL Total Bilirubin (0.2-1.0) mg/dL AST (15-37) IU/L ALT (14-63) IU/L Alkaline Phosphatase (46-116) U/L Troponin I (0.000-0.056) ng/mL Total Protein (6.4-8.2) g/dL Albumin (3.4-5.0) g/dL Globulin (2.6-4.0) g/dL Albumin/Globulin Ratio (0.9-1.6) TSH, Ultra Sensitive (0.36-3.74) uIU/mL Urine Color Urine Appearance Urine pH (5.0-8.0) Ur Specific [place] (1.001-1.035) Urine Protein (NEGATIVE) mg/dL Urine Glucose (UA) (NEGATIVE) mg/dL Urine Ketones (NEGATIVE) mg/dL Urine Occult Blood (NEGATIVE) Urine Nitrite (NEGATIVE) Urine Bilirubin (NEGATIVE) Urine Urobilinogen (<2.0) EU/dL Ur Leukocyte Esterase (NEGATIVE) Urine Opiates Screen NEGATIVE (NEGATIVE) Ur Oxycodone Screen NEGATIVE (NEGATIVE) Urine Methadone Screen NEGATIVE (NEGATIVE) Ur Barbiturates Screen NEGATIVE (NEGATIVE) Ur Phencyclidine Scrn NEGATIVE (NEGATIVE) Ur Amphetamine Screen POSITIVE (NEGATIVE) U Methamphetamines Scrn NEGATIVE (NEGATIVE) U Benzodiazepines Scrn NEGATIVE (NEGATIVE) U Cocaine Metab Screen NEGATIVE (NEGATIVE) U Marijuana (THC) Screen NEGATIVE (NEGATIVE) Meds: Medications Discontinued Medications Generic Name Dose Route Start Last Admin Trade Name Freq PRN Reason Stop Dose Admin Lorazepam 1 mg 03/18/21 17:46 03/18/21 17:59 Lorazepam 1 Mg Tab PO 03/18/21 17:47 1 mg ONETIME ONE Administration Departure - Departure Time of Disposition: 18:57 Disposition: Home, Self-Care 01 Clinical Impression: Nonspecific chest pain, Anxiety - Discharge Information Instructions: Nonspecific Chest Pain, Adult, [id number] Referrals: Tracey Bond DO [Primary Care Provider] - Forms: ED Department Discharge Additional Instructions: The following information is given to patients seen in the emergency department who are being discharged to home. This information is to outline your options for follow-up care. We provide all patients seen in our emergency department with a follow-up referral. The need for follow-up, as well as the timing and circumstances, are variable depending upon the specifics of your emergency department visit. If you don't have a primary care physician on staff, we will provide you with a referral. We always advise you to contact your personal physician following an emergency department visit to inform them of the circumstance of the visit and for follow-up with them and/or the need for any referrals to a consulting specialist. The emergency department will also refer you to a specialist when appropriate. This referral assures that you have the opportunity for follow-up care with a specialist. All of these measure are taken in an effort to provide you with optimal care, which includes your follow-up. Under all circumstances we always encourage you to contact your private physician who remains a resource for coordinating your care. When calling for follow-up care, please make the office aware that this follow-up is from your recent emergency room visit. If for any reason you are refused follow-up, please contact the [facility] Emergency Department at and asked to speak to the emergency department charge nurse. [facility] [address] [place], [place] [id number] [place] [address] Thank you for choosing the [facility] emergency department in [place] for your medical needs today. It was a pleasure caring for you. Today you were seen in the emergency department for chest pain and shortness of breath. 1. You were evaluated today on an emergent basis. Your lab work, EKG, chest x- ray and cardiac enzymes are normal. Please continue to monitor your symptoms closely. I feel that anxiety could play a role in the event that occurred today. 2. You can alternate Tylenol and ibuprofen as needed for pain and fever management. 3. We encourage you to follow up with your primary care provider and/or recommended specialist in the next few days for re-evaluation and further care/management. 4. If your symptoms should worsen, new symptoms develop or any of the signs and symptoms we discussed should arise please return to the emergency room or call 911 (if needed). Sepsis Event Note (ED) - Evaluation Sepsis Screening Result: No Definite Risk - Focused Exam Vital Signs: Vital Signs Temp Pulse Resp BP Pulse Ox 03/18/21 17:46 97.2 F 98 17 180/90 H 96
[2021-03-18 23:09] VITALS: BP 156/102; PULSE 78
--- NOTE | 2021-03-19 06:58 | PCM.EKG ---
#1 Interpretation EKG Date: 03/19/21 Time: 17:41 Rhythm: NSR Rate (Beats/Min): 88 [place]: Normal P-Wave: Present QRS: Normal ST-T: Normal QT: Normal MD/PQ Interval: 167 EKG Interpretation Comments: normal EKG
== END 2021-03-18 19:15 | disposition home or self-care (01) ==
LOC: MW.ED 17:37
DX: R07.9 Chest pain, unspecified (principal); F41.9 Anxiety disorder, unspecified; I10 Essential (primary) hypertension; E66.9 Obesity, unspecified; Z68.34 Body mass index [BMI] 34.0-34.9, adult; Z87.891 Personal history of nicotine dependence
CPT/HCPCS: 36415; 71045; 80053; 80305; 81003; 84443; 84484; 85025; 93005; 99285; A9270

== ENCOUNTER 2021-05-20 09:47 | Day surgery (SDC) | payer OTHER ==
[~2021-05-20 09:47] MED LIST changes: -Glycopyrrolate 0.2 MG/ML SDV ONE; -Lidocaine 2% 5 ML SDV ONE; -Midazolam 1 MG/ML 2 ML SDV ONE; -Propofol 200 MG/20 ML SDV ONE
[2021-05-20] MEDS ORDERED: Octyl 2-Cyanoacrylate 1 Tube ONE (10:05)
[2021-05-20] MEDS ORDERED: Bupivacaine 0.5% 30 ML SDV ONE (10:05)
[2021-05-20] MEDS ORDERED: Acetaminophen 1,000 MG in Premix Bag 1 BAG IV PRN (10:16)
[2021-05-20] MEDS ORDERED: Metoclopramide 10 MG/2 ML SDV IVPUSH PRN (10:16)
[2021-05-20] MEDS ORDERED: Albuterol 0.083% 2.5 MG/3 ML Neb Soln NEB PRN (10:16)
[2021-05-20] MEDS ORDERED: HYDROmorphone 1 MG/ML Syringe IVPUSH PRN (10:16)
[2021-05-20] MEDS ORDERED: Naloxone 0.4 MG/ML SDV IVPUSH PRN (10:16)
[2021-05-20] MEDS ORDERED: Ondansetron 4 MG/2 ML SDV IVPUSH PRN (10:16)
--- NOTE | 2021-05-20 10:21 | PCM.PREANE ---
Preanesthetic Assessment - Procedure Proposed Procedure: Lap Jesusita - Anesthesia/Transfusion/Family Hx Anesthesia History: Prior Anesthesia Without Reaction Other Type of Anesthesia Reaction Comment: DENIES ANY PROBLEMS WITH ANESTHESIA - never had a general anesthetic Family History of Anesthesia Reaction: No Transfusion History: No Prior Transfusion(s) - Review of Systems General: No Symptoms Pulmonary: No Symptoms (Quit smoking x 6months) Cardiovascular: No Symptoms (HTN) Gastrointestinal: No Symptoms (GERD - Antiacids PRN) Neurological: No Symptoms Other: Reports: None - Physical Assessment NPO Status Date: 05/19/21 NPO Status Time: 23:30 Vital Signs: Last Vital Signs Temp 97.0 F 05/20/21 10:10 Pulse 85 05/20/21 10:10 Resp 16 05/20/21 10:10 BP 159/106 H 05/20/21 10:10 Pulse Ox 96 05/20/21 10:10 Height: 5 ft 4 in Weight: 92.079 kg ASA Class: 2 Mental Status: Alert & Oriented x3 Airway Class: Mallampati = 3 Dentition: Reports: Normal Dentition Thyro-Mental Finger Breadths: 3 Mouth Opening Finger Breadths: 3 ROM/Head Extension: Full Lungs: Clear to Auscultation, Normal Respiratory Effort Cardiovascular: Regular Rate, Regular Rhythm - Lab Values: Laboratory Last Values Urine HCG, Qual NEGATIVE (NEGATIVE) 05/20/21 10:00 - Allergies Allergies/Adverse Reactions: Allergies Allergy/AdvReac Type Severity Reaction Status Date / Time No Known Allergies Allergy Verified 04/23/21 08:09 - Anesthesia Plan Beta Yadiel: Metoprolol Med Last Dose Date: 05/20/21 Med Last Dose Time: 07:45 - Acknowledgements Anesthesia Type Planned: General Anesthesia Pt an Appropriate Candidate for the Planned Anesthesia: Yes Alternatives and Risks of Anesthesia Discussed w Pt/Guardian: Yes Pt/Guardian Understands and Agrees with Anesthesia Plan: Yes PreAnesthesia Questionnaire HEENT History: Reports: Other (See Below) Other HEENT History: wears contacts Cardiovascular History: Reports: Hypertension Respiratory History: Reports: Bronchitis, Recurrent Gastrointestinal History: Reports: Cholelithiasis, GERD Genitourinary History: Reports: None GOLD MINER BLASTING History: Reports: Other (See Below) Other OB/BYN History: teratoma cyst Musculoskeletal History: Reports: Back Pain, Chronic Neurological History: Reports: None Psychiatric History: Reports: ADD, Anxiety, Depression Endocrine/Metabolic History: Reports: Obesity/BMI 30+ Hematologic History: Reports: None Immunologic History: Reports: None Oncologic (Cancer) History: Reports: None Dermatologic History: Reports: None - Infectious Disease History Infectious Disease History: Reports: None - Past Surgical History Head Surgeries/Procedures: Reports: None HEENT Surgical History: Reports: Oral Surgery Other HEENT Surgeries/Procedures: wisdom teeth extraction Cardiovascular Surgical History: Reports: None Respiratory Surgical History: Reports: None GI Surgical History: Reports: Colonoscopy, EGD Female Surgical History: Reports: Other (See Below) Other Female Surgeries/Procedures: exploratory laparoscopy Endocrine Surgical History: Reports: None Neurological Surgical History: Reports: None Musculoskeletal Surgical History: Reports: None Oncologic Surgical History: Reports: None Dermatological Surgical History: Reports: None - SUBSTANCE USE Tobacco Use Status *Q: Former Tobacco User Tobacco Use Within Last Twelve Months: Cigarettes - HOME MEDS Home Medications: Home Meds Dextroamphetamine/Amphetamine [Adderall 20 mg Tablet] 20 mg PO DAILY 04/15/14 [History] Calcium Carbonate [Tums] 1 tab.chew CHEW ASDIRECTED PRN 04/08/20 [History] Melatonin 5 mg PO BEDTIME PRN 04/08/20 [History] Multivit-Min/Iron/Folic Acid/K [One Daily Women's Multivitamin] 1 tab PO DAILY 04/08/20 [History] Albuterol Sulfate [Albuterol Sulfate Hfa] 1 - 2 puff INH ASDIRECTED PRN 05/17/21 [History] Cyclobenzaprine [Flexeril] 10 mg PO ASDIRECTED PRN 05/17/21 [History] LORazepam [Ativan] 0.5 mg PO ASDIRECTED PRN 05/17/21 [History] Metoprolol Succinate 100 mg PO DAILY 05/17/21 [History] buPROPion HCL [Bupropion Xl] 300 mg PO DAILY 05/17/21 [History] valACYclovir HCl [Valtrex] 500 mg PO ASDIRECTED PRN 05/17/21 [History] - CURRENT (IN HOUSE) MEDS Current Meds: Current Medications Albuterol (Albuterol 0.083% 2.5 Mg/3 Ml Neb Soln) 2.5 mg NEB ONETIME PRN PRN Reason: Wheezing Droperidol (Droperidol 5 Mg/2 Ml Sdv) 0.625 mg IVPUSH ONETIME PRN PRN Reason: Nausea/Vomiting Fentanyl (Fentanyl 100 Mcg/2 Ml Sdv) 50 mcg IVPUSH Q5M PRN PRN Reason: Pain (mild 1-3) Hydromorphone HCl (Hydromorphone 1 Mg/Ml Syringe) 1 mg IVPUSH Q10M PRN PRN Reason: Pain (moderate 4-6) Lactated Ringer's (Ringers, Lactated) 1,000 mls @ 125 mls/hr IV ASDIRECTED MELANIE Last Admin: 05/20/21 10:15 Dose: 125 mls/hr Documented by: Acetaminophen 1,000 mg/ Premix 100 mls @ 400 mls/hr IV ONETIME PRN PRN Reason: Pain Metoclopramide HCl (Metoclopramide 10 Mg/2 Ml Sdv) 10 mg IVPUSH ONETIME PRN PRN Reason: Nausea/Vomiting Naloxone HCl (Naloxone 0.4 Mg/Ml Sdv) 0.1 mg IVPUSH ASDIRECTED PRN PRN Reason: Respiratory Depression Ondansetron HCl (Ondansetron 4 Mg/2 Ml Sdv) 4 mg IVPUSH ONETIME PRN PRN Reason: Nausea/Vomiting Sodium Chloride (Sodium Chloride 0.9% 10 Ml Sdv) 10 ml IV ASDIRECTED PRN PRN Reason: IV Use Sodium Chloride (Sodium Chloride 0.9% 10 Ml Syringe) 10 ml FLUSH ASDIRECTED PRN PRN Reason: Keep Vein Open Sodium Chloride (Sodium Chloride 0.9% 2.5 Ml Syringe) 2.5 ml FLUSH ASDIRECTED PRN PRN Reason: Keep Vein Open Discontinued Medications Bupivacaine HCl (Bupivacaine 0.5% 30 Ml Sdv) Confirm Administered Dose 30 ml .ROUTE .QUIQ ONE Stop: 05/20/21 10:06 Octyl Cyanoacrylate (Octyl 2-Cyanoacrylate 1 Tube) Confirm Administered Dose 1 applic .ROUTE .quietrevolutionMED ONE Stop: 05/20/21 10:06
[2021-05-20] MEDS ORDERED: Rocuronium Bromide 50 MG/5 ML Syringe ONE (11:13)
[2021-05-20] MEDS ORDERED: Ondansetron 4 MG/2 ML SDV ONE (11:13)
[2021-05-20] MEDS ORDERED: fentaNYL 250 MCG/5 ML SDV ONE (11:13)
[2021-05-20] MEDS ORDERED: Glycopyrrolate 0.2 MG/ML SDV ONE (11:13)
[2021-05-20] MEDS ORDERED: Lidocaine 2% 5 ML SDV ONE (11:13)
[2021-05-20] MEDS ORDERED: Sugammadex Sodium 200 MG/2 ML VIAL ONE (11:13)
[2021-05-20] MEDS ORDERED: Ketorolac 30 MG/ML SDV ONE (11:13)
[2021-05-20] MEDS ORDERED: Midazolam 1 MG/ML 2 ML SDV ONE (11:13)
[2021-05-20] MEDS ORDERED: Propofol 200 MG/20 ML SDV ONE (11:13)
[2021-05-20] MEDS ORDERED: Sodium Chloride 0.9% 20 ML ONE (11:15)
[2021-05-20] MEDS ORDERED: ceFAZolin 1 GM Vial ONE (11:15)
[2021-05-20] MEDS ORDERED: fentaNYL 100 MCG/2 ML SDV ONE (11:34)
[2021-05-20] MEDS ORDERED: hydrALAZINE 20 MG/ML SDV ONE (11:46)
--- NOTE | 2021-05-20 12:37 | PCM.POSTAN ---
POST ANESTHESIA ASSESSMENT - MENTAL STATUS Mental Status: Somnolent - VITAL SIGNS Vital Signs: Last Vital Signs Temp 97.0 F 05/20/21 10:10 Pulse 85 05/20/21 10:10 Resp 16 05/20/21 10:10 BP 149/91 H 05/20/21 10:20 Pulse Ox 96 05/20/21 10:10 - RESPIRATORY Respiratory Status: Respiratory Rate WNL, Airway Patent, O2 Saturation Stable, Supplemental Oxygen - CARDIOVASCULAR CV Status: Pulse Rate WNL, Blood Pressure Stable - GASTROINTESTINAL GI Status: No Symptoms - PAIN Free Text/Narrative:: Resting comfortably - POST OP HYDRATION Hydration Status: Adequate & Stable
--- NOTE | 2021-05-20 12:39 | PCM.OPNOTE ---
- General Post-Op/Procedure Note Date of Surgery/Procedure: 05/20/21 Operative Procedure(s): Laparoscopic cholecystectomy Findings: Mildly distended gallbladder with some adhesions along the cystic plate to suggest chronic cholecystitis Pre Op Diagnosis: Biliary dyskinesia Post-Op Diagnosis: same Anesthesia Technique: General ET Tube Primary Surgeon: Allyn Ace Fluid Replacement, Intraop: 1,400 Output, Urine Amount: 100 EBL in mLs: 10 Condition: Good
[2021-05-20] MEDS: fentaNYL 100 MCG/2 ML SDV IVPUSH PRN ×2 (12:42→12:51)
[2021-05-20 14:52] VITALS: BP 128/74; PULSE 88
--- NOTE | 2021-05-21 23:49 | OR ---
SURGEON: ALLYN GODINEZ MD DATE OF PROCEDURE: 05/20/2021 PREOPERATIVE DIAGNOSIS: Biliary dyskinesia. POSTOPERATIVE DIAGNOSIS: Biliary dyskinesia. PROCEDURE PERFORMED: Laparoscopic cholecystectomy. PRIMARY SURGEON: Allyn Godinez MD ANESTHESIA: General endotracheal anesthesia. FLUIDS: See Anesthesia record. ESTIMATED BLOOD LOSS: 10 mL. URINE OUTPUT: See Anesthesia record. FINDINGS: Mildly distended gallbladder with adhesions along the proximal half of the cystic plate consistent with chronic cholecystitis. COMPLICATIONS: None. INDICATIONS: The patient is a 36-year-old female who presented to my clinic with biliary dyskinesia. I explained the need for cholecystectomy. I would attempt it laparoscopically but convert to open should I be unable to perform it safely. I explained the procedure, expected perioperative course, and the risks. She verbalized understanding and wishes to proceed. PROCEDURE IN DETAIL: The patient was brought in to the OR and placed on the OR table in supine position. A time-out was completed verifying the patient's name, age, date of , allergies, and procedure to be performed. General endotracheal anesthesia was induced. The left arm was tucked at the patient's side and a Jones catheter placed. The abdomen was prepped and draped in usual standard fashion. I anesthetized the infraumbilical fold with 0.5% Marcaine plain. An 11-blade was used to make an incision along the infraumbilical fold. I used cautery to dissect down to the subcutaneous fat layer. I bluntly dissected down to the fascia. The fascia was elevated with Kochers and incised sharply with curved Pratt scissors. The peritoneum was grasped with hemostats and incised sharply with Metzenbaum scissors. Entry into the abdomen was palpated digitally. A 12 mm Vincent trocar was placed into the abdomen and it was insufflated. A 5 mm 30-degree scope was inserted. I inspected the area underneath my initial trocar placement. No damage to surrounding structures was noted. The patient was placed into reverse Trendelenburg position and airplaned slightly to the left. 5 mm trocars were placed in the following locations under direct visualization; one in the epigastric area, one along the right flank, and one 2 fingerbreadths below the right subcostal margin in the midclavicular line. The dome of the gallbladder was grasped and elevated superiorly. There were some adhesions along the infundibulum that were taken down using suction and hook cautery. I dissected around my cystic plate. I identified both the cystic duct and cystic artery. I then cleared away one-third of the proximal cystic plate. Once my critical view was achieved, a photograph was taken. I doubly clipped and ligated the cystic duct and artery. The remainder of the attachments of the gallbladder to the cystic plate were taken down using hook cautery. The gallbladder was then placed in an EndoCatch bag and removed through the 12 mm port site. The operative field was inspected. It appeared to be hemostatic with no evidence of bile leakage. A photograph was taken. The right upper quadrant was irrigated with normal saline and suctioned out. The 5 mm trocars were removed under direct visualization and the 12 mm trocar removed as well. The abdomen was allowed to desufflate. The fascia at the infraumbilical port site was closed with interrupted 0 Vicryl sutures. The subcutaneous fat layer was closed with interrupted 3-0 Vicryl sutures. The skin at the infraumbilical port site was closed with a running 4-0 Monocryl stitch. The 5 mm trocar sites were closed with interrupted 4-0 Monocryl suture. Dermabond and sterile dressings were applied. The patient tolerated the procedure well, was extubated, and taken to PACU in stable condition. All counts were complete and correct at the end of the case. MARION LORD /[id number]
== END 2021-05-20 14:50 | disposition home or self-care (01) ==
LOC: MW.SDS 09:47
PROVIDERS: ATTEND Surgery
DX: K82.8 Other specified diseases of gallbladder (principal); F41.9 Anxiety disorder, unspecified; F32.9 Major depressive disorder, single episode, unspecified; E66.9 Obesity, unspecified; Z87.891 Personal history of nicotine dependence; Z79.899 Other long term (current) drug therapy; Z98.890 Other specified postprocedural states
CPT/HCPCS: 47562; 81025; A9270; J0131; J0360; J0690; J1170; J1885; J2250; J2370; J2405; J2704; J3010; J3490; J7120; 00790

== ENCOUNTER 2021-11-01 15:13 | Inpatient (IN) | payer OTHER ==
[2021-11-01] MEDS ORDERED: LORazepam 2 MG/ML SDV IVPUSH ONE ×3 (18:14→19:52)
[2021-11-01] MEDS ORDERED: Sodium Chloride 0.9% 10 ML Syringe FLUSH PRN (18:15)
[2021-11-01] MEDS ORDERED: Sodium Chloride 0.9% 2.5 ML Syringe FLUSH PRN (18:15)
[2021-11-01] MEDS ORDERED: Ondansetron 4 MG/2 ML SDV IVPUSH ONE (18:15)
[2021-11-01] MEDS ORDERED: Sodium Chloride 0.9% 1,000 ML IV ONE ×2 (18:15→19:56)
[2021-11-01] MEDS ORDERED: Thiamine 200 MG/2 ML MDV IVPUSH ONE (18:31)
[2021-11-01 19:13] LABS: BLOOD UREA NITROGEN,BUN 9 mg/dL (7.0-18.0); CARBON DIOXIDE,CO2 19.1 mmol/L (21.0-32.0); CHLORIDE,CL 94 mmol/L (98-107); GLUCOSE RANDOM 114 mg/dL (74-106); LIPASE 104 U/L (73-393); POTASSIUM,K 3.7 mmol/L (3.5-5.1); SODIUM,NA 134 mmol/L (136-145)
[2021-11-01] MEDS ORDERED: Iopamidol 755 MG/ML 500 ML Multipack Bottle IVPUSH STA (20:07)
[2021-11-01] MEDS: LORazepam 2 MG/ML SDV IVPUSH PRN (22:50)
[2021-11-01] MEDS: Sodium Chloride 0.9% 1,000 ML IV SCH (22:52)
[2021-11-02 05:52] LABS: BLOOD UREA NITROGEN,BUN 10 mg/dL (7.0-18.0); CHLORIDE,CL 102 mmol/L (98-107); POTASSIUM,K 3.7 mmol/L (3.5-5.1); SODIUM,NA 137 mmol/L (136-145)
[2021-11-02 06:04] LABS: CARBON DIOXIDE,CO2 24.5 mmol/L (21.0-32.0); GLUCOSE RANDOM 101 mg/dL (74-106)
[2021-11-02] MEDS: Sodium Chloride 0.9% 1,000 ML IV SCH ×2 (07:15→17:02)
[2021-11-02] MEDS: Metoprolol Succinate 100 MG Tab.ER PO SCH (08:29)
[2021-11-02] MEDS: Thiamine 200 MG/2 ML MDV IVPUSH SCH (08:29)
[2021-11-02] MEDS: Folic Acid 50 MG/10 ML MDV SUBCUT SCH (08:29)
[2021-11-02] MEDS ORDERED: Phosphorus #1 250 MG Tab PO ONE (09:00)
[2021-11-02] MEDS: LORazepam 2 MG/ML SDV IVPUSH PRN ×3 (09:40→14:52)
[2021-11-02] MEDS: Ondansetron 4 MG/2 ML SDV IVPUSH PRN (09:56)
[2021-11-02] MEDS: Acetaminophen 325 MG Tab PO PRN (19:30)
[2021-11-03] MEDS: Sodium Chloride 0.9% 1,000 ML IV SCH ×3 (00:17→16:28)
[2021-11-03 06:08] LABS: BLOOD UREA NITROGEN,BUN 5 mg/dL (7.0-18.0); CARBON DIOXIDE,CO2 26.6 mmol/L (21.0-32.0); CHLORIDE,CL 104 mmol/L (98-107); GLUCOSE RANDOM 100 mg/dL (74-106); POTASSIUM,K 3.5 mmol/L (3.5-5.1); SODIUM,NA 141 mmol/L (136-145)
[2021-11-03] MEDS: Thiamine 200 MG/2 ML MDV IVPUSH SCH (08:17)
[2021-11-03] MEDS: Metoprolol Succinate 100 MG Tab.ER PO SCH (08:17)
[2021-11-03] MEDS: Ondansetron 4 MG/2 ML SDV IVPUSH PRN (08:19)
[2021-11-03] MEDS: Acetaminophen 325 MG Tab PO PRN (08:21)
[2021-11-03] MEDS: Folic Acid 50 MG/10 ML MDV SUBCUT SCH (08:21)
[2021-11-03] MEDS: buPROPion 150 MG Tab.ER PO SCH (09:11)
[2021-11-03] MEDS ORDERED: Magnesium Sulfate/Water 2 GM/50 ML Premix Bag IV ONE (10:34)
[2021-11-03] MEDS ORDERED: Magnesium Sulfate/Water 2 GM in Premix Bag 1 BAG IV ONE (10:45)
[2021-11-03] MEDS: LORazepam 2 MG/ML SDV IVPUSH PRN ×2 (14:33→21:26)
[2021-11-03] MEDS ORDERED: Melatonin 3 MG Tab PO PRN (21:00)
[2021-11-04] MEDS: Sodium Chloride 0.9% 1,000 ML IV SCH ×2 (00:10→08:19)
[2021-11-04 06:12] LABS: BLOOD UREA NITROGEN,BUN 3 mg/dL (7.0-18.0); CARBON DIOXIDE,CO2 25.1 mmol/L (21.0-32.0); CHLORIDE,CL 107 mmol/L (98-107); GLUCOSE RANDOM 101 mg/dL (74-106); POTASSIUM,K 3.3 mmol/L (3.5-5.1); SODIUM,NA 140 mmol/L (136-145)
[2021-11-04] MEDS: Thiamine 200 MG/2 ML MDV IVPUSH SCH (08:20)
[2021-11-04] MEDS: Metoprolol Succinate 100 MG Tab.ER PO SCH (08:20)
[2021-11-04] MEDS: buPROPion 150 MG Tab.ER PO SCH (08:21)
[2021-11-04] MEDS: Acetaminophen 325 MG Tab PO PRN (08:21)
[2021-11-04] MEDS ORDERED: Folic Acid 50 MG/10 ML MDV IV SCH (09:00)
[2021-11-04] MEDS: LORazepam 2 MG/ML SDV IVPUSH PRN (10:08)
[2021-11-04] MEDS ORDERED: Potassium Chloride 20 MEQ Tab.ER PO ONE (12:09)
[2021-11-04 16:47] VITALS: BP 169/99; PULSE 72
== END 2021-11-04 16:00 | disposition home or self-care (01) | DRG 897 ==
LOC: MW.ED 15:13 → MW.ICU 20:45 → MW.MS 11-03 11:00
PROVIDERS: ADMIT Internal Medicine; ATTEND Internal Medicine
DX: F10.230 Alcohol dependence with withdrawal, uncomplicated (principal); I10 Essential (primary) hypertension; K21.9 Gastro-esophageal reflux disease without esophagitis; G89.29 Other chronic pain; M54.9 Dorsalgia, unspecified; F98.8 Other specified behavioral and emotional disorders with onset usually occurring in childhood and adolescence; F41.9 Anxiety disorder, unspecified; F32.A Depression, unspecified; E66.9 Obesity, unspecified; Z79.899 Other long term (current) drug therapy; Z98.890 Other specified postprocedural states; Z90.49 Acquired absence of other specified parts of digestive tract; Z20.822 Contact with and (suspected) exposure to COVID-19; Z68.35 Body mass index [BMI] 35.0-35.9, adult
CPT/HCPCS: 36415; 74177; 74177-26; 80053; 80305-QW; 80307; 81001; 81025; 83690; 83735; 84100; 85025; 93005; 96374; 96375; 99285-25; A9270-GY; J2060; J2405; J3411; J3475; J3490; J7030; Q9967; U0002

== ENCOUNTER 2024-12-02 23:54 | Emergency (ER) | payer BC ==
[2024-12-03 00:05] VITALS: BP 155/84; PULSE 91
== END 2024-12-03 01:01 | disposition home or self-care (01) ==
LOC: MW.ED 23:54
DX: K59.00 Constipation, unspecified (principal); I10 Essential (primary) hypertension; K21.9 Gastro-esophageal reflux disease without esophagitis; E66.9 Obesity, unspecified; Z79.899 Other long term (current) drug therapy; Z68.30 Body mass index [BMI] 30.0-30.9, adult
CPT/HCPCS: 74018; 74018-26; 99283